=== PATIENT | male | born 1985 | race Caucasian/White ===

== ENCOUNTER 2018-05-14 20:43 | Emergency (ER) | payer OTHER ==
[2018-05-14] MEDS: IV NORMAL SALINE 1000ML BAG 1,000 ML IV (21:32)
[2018-05-14 21:42] LABS: ADD MAN DIFF? NO
[2018-05-14 21:44] LABS: BASO % 0 % (0-3); EOS # 0.3 x10^3/uL (0.0-0.7); EOS % 4 % (0-3); HEMATOCRIT 42.5 % (39.0-53.0); HEMOGLOBIN 14.8 g/dL (13.0-17.5); LYMPH # 1.8 x10^3/uL (1.0-4.8); LYMPH % 27 % (24-48); MEAN CORPUSCULAR HEMOGLOBIN 31 pg (25-35); MEAN CORPUSCULAR HGB CONC 35 g/dL (31-37); MEAN CORPUSCULAR VOLUME 90 fL (79-100); MONO # 0.4 x10^3/uL (0.0-1.1); MONO % 6 % (0-9); NEUT # 4.2 x10^3uL (1.8-7.7); NEUT % 63 % (31-73); PLATELET COUNT 187 x10^3/uL (140-400); RED BLOOD COUNT 4.72 x10^6/uL (4.30-5.70); RED CELL DISTRIBUTION WIDTH 13.3 % (11.5-14.5); WHITE BLOOD COUNT 6.7 x10^3/uL (4.0-11.0)
[2018-05-14 21:54] LABS: ANION GAP 8 (6-14); BLOOD UREA NITROGEN 14 mg/dL (8-26); BUN/CREATININE RATIO 14 (6-20); CALCIUM 8.8 mg/dL (8.5-10.1); CARBON DIOXIDE 28 mmol/L (21-32); CHLORIDE 102 mmol/L (98-107); GFR 86.6; GLUCOSE 84 mg/dL (70-99); POTASSIUM 4.2 mmol/L (3.5-5.1); SODIUM 138 mmol/L (136-145)
[2018-05-14 22:00] LABS: ALBUMIN 4.1 g/dL (3.4-5.0); ALBUMIN/GLOBULIN RATIO 1.5 (1.0-1.7); ALK PHOS 92 U/L (46-116); ALT (SGPT) 25 U/L (16-63); AST (SGOT) 18 U/L (15-37); MAGNESIUM 1.5 mg/dL (1.8-2.4); TOTAL BILIRUBIN 0.9 mg/dL (0.2-1.0); TOTAL PROTEIN 6.9 g/dL (6.4-8.2)
[2018-05-14] MEDS: IBUPROFEN 600 MG TABLET. PO (22:35)
[2018-05-15 04:24] LABS: POC GLUCOSE 68 mg/dL (70-99)
== END 2018-05-14 22:48 | disposition home or self-care (01) ==
LOC: ER 20:43
DX: R11.0 Nausea (principal); R25.1 Tremor, unspecified; R41.0 Disorientation, unspecified; F41.9 Anxiety disorder, unspecified; K08.89 Other specified disorders of teeth and supporting structures
CPT/HCPCS: 36415; 80053; 82962; 83735; 85025; 96361; 96374; 99284-25; J2060; J7030

== ENCOUNTER 2018-08-20 13:57 | Emergency (ER) | payer OTHER ==
[~2018-08-20] VITALS: Ht 188 cm; Wt 74.8 kg
[2018-08-20] MEDS ORDERED: IPRATRPIUM/ALBUTEROL 0.5/2.5MG 3 ML NEBU. NEB ONE (14:30)
--- NOTE | 2018-08-20 14:37 | PHYS DOC ---
Past Medical History Past Medical History: No Pertinent History, Anxiety, Hypertension Past Surgical History: No Surgical History, Other Additional Past Surgical Histo: Hernia Additional Information: "1/2 PACK DAILY" Alcohol Use: Occasionally Drug Use: Marijuana Adult General Chief Complaint Chief Complaint: PSYCH EVALUATION HPI HPI Patient is a 32 year old male with history of anxiety hypertension who presents with increased anxiety over the past several months with acute anxiety over the past 2-3 days. Patient reports racing thoughts and inability to stop thinking about stress or relationships. He denies HI, SI, hallucinations delusions and paranoia. [] Review of Systems Review of Systems Constitutional: Denies fever or chills [] Eyes: Denies change in visual acuity, redness, or eye pain [] HENT: Denies nasal congestion or sore throat [] Respiratory: Denies cough or shortness of breath [] Cardiovascular: No additional information not addressed in HPI [] GI: Denies abdominal pain, nausea, vomiting, bloody stools or diarrhea [] : Denies dysuria or hematuria [] Musculoskeletal: Denies back pain or joint pain [] Integument: Denies rash or skin lesions [] Neurologic: Denies headache, focal weakness or sensory changes [] Endocrine: Denies polyuria or polydipsia [] All other systems were reviewed and found to be within normal limits, except as documented in this note. Current Medications Current Medications Current Medications Medications (Trade) Dose Ordered Sig/German Start Time Stop Time Status Last Admin Dose Admin Albuterol/ Ipratropium (Duoneb) 3 ml 1X ONCE 08/20/18 14:30 08/20/18 14:31 DC 08/20/18 14:40 3 ML Allergies Allergies Allergies Coded Allergies Type Severity Reaction Last Updated Verified No Known Drug Allergies 05/14/18 No Physical Exam Physical Exam Constitutional: Well developed, well nourished, no acute distress, non-toxic appearance. [] HENT: Normocephalic, atraumatic, bilateral external ears normal, oropharynx moist, no oral exudates, nose normal. [] Eyes: PERRLA, EOMI, conjunctiva normal, no discharge. [] Neck: Normal range of motion, no tenderness, supple, no stridor. [] Cardiovascular:Heart rate regular rhythm, no murmur [] Lungs & Thorax: Bilateral breath sounds clear to auscultation [] Abdomen: Bowel sounds normal, soft, no tenderness, no masses, no pulsatile masses. [] Skin: Warm, dry, no erythema, no rash. [] Back: No tenderness, no CVA tenderness. [] Extremities: No tenderness, no cyanosis, no clubbing, ROM intact, no edema. [] Neurologic: Alert and oriented X 3, normal motor function, normal sensory function, no focal deficits noted. [] Psychologic: Affect normal, judgement normal, mood normal. [] Current Patient Data Vital Signs Vital Signs Date Time Temp Pulse Resp B/P (MAP) Pulse Ox O2 Delivery O2 Flow Rate FiO2 08/20/18 14:43 98 Room Air 08/20/18 14:06 98.6 86 20 161/85 (110) 98.6 Lab Values Laboratory Tests Test 08/20/18 14:50 White Blood Count 8.2 x10^3/uL (4.0-11.0) Red Blood Count 5.10 x10^6/uL (4.30-5.70) Hemoglobin 15.7 g/dL (13.0-17.5) Hematocrit 45.2 % (39.0-53.0) Mean Corpuscular Volume 89 fL (79-100) Mean Corpuscular Hemoglobin 31 pg (25-35) Mean Corpuscular Hemoglobin Concent 35 g/dL (31-37) Red Cell Distribution Width 13.5 % (11.5-14.5) Platelet Count 213 x10^3/uL (140-400) Neutrophils (%) (Auto) 61 % (31-73) Lymphocytes (%) (Auto) 27 % (24-48) Monocytes (%) (Auto) 6 % (0-9) Eosinophils (%) (Auto) 4 % (0-3) H Basophils (%) (Auto) 1 % (0-3) Neutrophils # (Auto) 5.0 x10^3uL (1.8-7.7) Lymphocytes # (Auto) 2.2 x10^3/uL (1.0-4.8) Monocytes # (Auto) 0.5 x10^3/uL (0.0-1.1) Eosinophils # (Auto) 0.4 x10^3/uL (0.0-0.7) Basophils # (Auto) 0.0 x10^3/uL (0.0-0.2) Sodium Level 137 mmol/L (136-145) Potassium Level 3.9 mmol/L (3.5-5.1) Chloride Level 101 mmol/L (98-107) Carbon Dioxide Level 27 mmol/L (21-32) Anion Gap 9 (6-14) Blood Urea Nitrogen 16 mg/dL (8-26) Creatinine 0.9 mg/dL (0.7-1.3) Estimated GFR (Cockcroft-Gault) 97.8 Glucose Level 90 mg/dL (70-99) Calcium Level 9.5 mg/dL (8.5-10.1) Ethyl Alcohol Level < 10 mg/dL (0-10) Laboratory Tests 08/20/18 14:50 Laboratory Tests 08/20/18 14:50 EKG EKG [] Radiology/Procedures Radiology/Procedures [] Course & Med Decision Making Course & Med Decision Making Pertinent Labs and Imaging studies reviewed. (See chart for details) [Patient reports generalized anxiety with history of methamphetamine abuse. Reports increased life stressors with poor coping Boom lack of support group. Psychiatric assessment counselor, Anson consulted. Outpatient resources provided. We'll discharge patient on brief course of anxiety medication until he can be started on an SSRI.] Dragon Disclaimer Nusrat Disclaimer This electronic medical record was generated, in whole or in part, using a voice recognition dictation system. Departure Departure Impression: Primary Impression: Generalized anxiety disorder Disposition: 01 HOME, SELF-CARE Condition: GOOD Referrals: NO PCP (PCP) Scripts Lorazepam (ATIVAN) 1 Mg Tablet 1 MG PO TID, #10 TAB Prov: MARIE HAND DO 08/20/18 MARIE HAND DO Aug 20, 2018 14:37
[2018-08-20 15:09] LABS: BASO % 1 % (0-3); EOS # 0.4 x10^3/uL (0.0-0.7); EOS % 4 % (0-3); HEMATOCRIT 45.2 % (39.0-53.0); HEMOGLOBIN 15.7 g/dL (13.0-17.5); LYMPH # 2.2 x10^3/uL (1.0-4.8); LYMPH % 27 % (24-48); MEAN CORPUSCULAR HEMOGLOBIN 31 pg (25-35); MEAN CORPUSCULAR HGB CONC 35 g/dL (31-37); MEAN CORPUSCULAR VOLUME 89 fL (79-100); MONO # 0.5 x10^3/uL (0.0-1.1); MONO % 6 % (0-9); NEUT % 61 % (31-73); PLATELET COUNT 213 x10^3/uL (140-400); RED CELL DISTRIBUTION WIDTH 13.5 % (11.5-14.5); WHITE BLOOD COUNT 8.2 x10^3/uL (4.0-11.0)
[2018-08-20 15:26] LABS: CALCIUM 9.5 mg/dL (8.5-10.1); CREATININE 0.9 mg/dL (0.7-1.3); GFR 97.8; POTASSIUM 3.9 mmol/L (3.5-5.1)
[2018-08-20 15:34] VITALS: BP 150/87
--- NOTE | 2018-08-20 15:50 | EKG ---
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
[2018-08-20] MEDS ORDERED: LORA-434 PO (16:14)
== END 2018-08-20 16:16 | disposition home or self-care (01) ==
LOC: EEVIPCON 13:57 → ER 13:57
DX: F41.9 Anxiety disorder, unspecified (principal); F15.10 Other stimulant abuse, uncomplicated; I10 Essential (primary) hypertension; F17.200 Nicotine dependence, unspecified, uncomplicated
CPT/HCPCS: 36415; 80048; 85025; 93005; 94640; 99285; G0480; J7620